=== PATIENT | male | born 1990 | race African-American/Black ===

== ENCOUNTER 2016-08-21 06:42 | Emergency (ER) | payer OTHER ==
[2016-08-21 07:00] VITALS: BMI 29.1
--- NOTE | 2016-08-21 07:27 | PDOC ---
[id number] No Limitations - History of Present Illness Timing/Duration: reports: intermittent Abdominal Pain Onset Location: reports: other (right testicular pain) Pain Radiation: reports: no radiation Activities at Onset: reports: other (heavy lifting) Alleviating Factors: improves with: None <Sedrick Larkin - Last Filed: 10/24/16 14:32> <Estefani Moreno - Last Filed: 10/25/16 09:07> - General Chief Complaint: Pain, Acute Stated Complaint: ABD AND TESTICULAR PAIN Time Seen by Provider: 08/21/16 07:11 Past History - Travel Traveled outside of the country in the last 30 days: No Close contact w/someone who was outside of country & ill: No - Immunization History Immunization Up to Date: Yes - Psycho/Social/Smoking Cessation Hx Anxiety: No Suicidal Ideation: No Smoking Status: No Smoking History: Never smoked Have you smoked in the past 12 months: No Number of Cigarettes Smoked Daily: 0 Hx Alcohol Use: No Drug/Substance Use Hx: No Substance Use Type: None <Sedrick Larkin - Last Filed: 10/24/16 14:32> <Estefani Moreno - Last Filed: 10/25/16 09:07> - Past Medical History Allergies/Adverse Reactions: Allergies Allergy/AdvReac Type Severity Reaction Status Date / Time No Known Allergies Allergy Verified 08/21/16 06:51 Home Medications: Ambulatory Orders No Home Medications 0 dose .ROUTE UTDICT 10/19/12 Abd/GI Specific PMHX - Complaint Specific PMHX Irritable Bowel Synd (IBS): No <Sedrick Larkin - Last Filed: 10/24/16 14:32> Review of Systems - Review of Systems Able to Perform ROS?: Yes Comments:: 08/21/16 07:25 CONSTITUTIONAL: Absent: fever, chills, diaphoresis, generalized weakness, malaise, loss of appetite HEENT: Absent: rhinorrhea, nasal congestion, throat pain, throat swelling, difficulty swallowing, mouth swelling, ear pain, eye pain, visual Changes CARDIOVASCULAR: Absent: chest pain, loss of consciousness, palpitations, irregular heart rate, peripheral edema RESPIRATORY: Absent: cough, shortness of breath, dyspnea with exertion, orthopnea, wheezing, stridor, hemoptysis GASTROINTESTINAL: Absent: abdominal pain, abdominal distension, nausea, vomiting, diarrhea, constipation, melena, hematochezia GENITOURINARY: +right testicular pain Absent: dysuria, frequency, urgency, hesitancy, hematuria, flank pain, genital pain MUSCULOSKELETAL: Absent: myalgia, arthralgia, joint swelling SKIN: Absent: rash, itching, pallor HEMATOLOGIC/IMMUNOLOGIC: Absent: easy bleeding, easy bruising, lymphadenopathy, frequent infections ENDOCRINE: Absent: unexplained weight gain, unexplained weight loss, heat intolerance, cold intolerance NEUROLOGIC: Absent: headache, focal weakness or paresthesias, dizziness, unsteady gait, seizure, mental status changes, bladder or bowel incontinence PSYCHIATRIC: Absent: anxiety, depression, suicidal or homicidal ideation, hallucinations. Is the patient limited Occitan proficient: No <Sedrick Larkin - Last Filed: 10/24/16 14:32> *Physical Exam - Vital Signs Last Vital Signs Temp Pulse Resp BP Pulse Ox 98.3 F 79 18 125/90 99 08/21/16 06:51 08/21/16 06:51 08/21/16 06:51 08/21/16 06:51 08/21/16 06:51 - Physical Exam Comments: 08/21/16 07:26 GENERAL: Well developed, well nourished. Awake and alert. No acute distress. HEENT: Normocephalic, atraumatic. PERRLA, EOMI. No conjunctival pallor. Sclera are non- icteric. Moist mucous membranes. Oropharynx is clear. NECK: Supple. Full ROM. No JVD. Carotid pulses 2+ and symmetric, without bruits. No thyromegaly. No lymphadenopathy. CARDIOVASCULAR: Regular rate and rhythm. No murmurs, rubs, or gallops. Distal pulses are 2+ and symmetric. PULMONARY: No evidence of respiratory distress. Lungs clear to auscultation bilaterally. No wheezing, rales or rhonchi. ABDOMINAL: +right testicular pain on palp; no inguinal hernia appreciated Soft. Non-tender. Non-distended. No rebound or guarding. No organomegaly. Normoactive bowel sounds. MUSCULOSKELETAL Normal range of motion at all joints. No bony deformities or tenderness. No CVA tenderness. EXTREMITIES: No cyanosis. No clubbing. No edema. No calf tenderness. SKIN: Warm and dry. Normal capillary refill. No rashes. No jaundice. NEUROLOGICAL: Alert, awake, appropriate. Cranial nerves 2-12 intact. No deficits to light touch and temperature in face, upper extremities and lower extremities. No motor deficits in the in face, upper extremities and lower extremities. Normoreflexic in the upper and lower extremities. Normal speech. Toes are down- going bilaterally. Gait is normal without ataxia. PSYCHIATRIC: Cooperative. Good eye contact. Appropriate mood and affect. <Sedrick Larkin - Last Filed: 10/24/16 14:32> - Vital Signs Last Vital Signs Temp Pulse Resp BP Pulse Ox 98.5 F 87 18 127/69 99 08/21/16 11:44 08/21/16 11:44 08/21/16 11:44 08/21/16 11:44 08/21/16 11:44 <Estefani Moreno - Last Filed: 10/25/16 09:07> ED Treatment Course - RADIOLOGY Radiology Studies Ordered: Category Date Time Status SCROTUM AND CONTENTS US [US] Stat Ultrasound 08/21/16 07:21 Ordered <Sedrick Larkin - Last Filed: 10/24/16 14:32> - Medications Given in the ED: ED Medications Discontinued Medications Generic Name Dose Route Start Last Admin Trade Name Freq PRN Reason Stop Dose Admin Ibuprofen 600 mg 08/21/16 11:17 08/21/16 11:43 Motrin - PO 08/21/16 11:18 600 mg ONCE ONE Administration <Estefani Moreno - Last Filed: 10/25/16 09:07> Progress Note - Progress Note Progress Note: 26-year-old male presents to the emergency department complaining of right testicular pain 4 days after heavy lifting while at work. Patient states he's been having right testicular 4/10 dull intermittent discomfort which radiates to the suprapubic area. The pain is exacerbated on touch. Alleviated at rest. Patient denies any chest pain, shortness of breath, flank pain, urinary symptoms : frequency/urgency/hesitancy, hematuria. <Sedrick Larkin - Last Filed: 10/24/16 14:32> *DC/Admit/Observation/Transfer <Sedrick Larkin - Last Filed: 10/24/16 14:32> - Attestations Physician Attestion: I reviewed the case with the mid-level practitioner and agree with the mid- level practitioner's assessment, diagnosis and disposition. <Estefani Moreno - Last Filed: 10/25/16 09:07> Diagnosis at time of Disposition: Epididymitis - Discharge Dispostion Disposition: HOME Condition at time of disposition: Good - Referrals Referrals: Telly Colbert MD [Staff Physician] - - Patient Instructions Printed Discharge Instructions: DI for Epididymitis Additional Instructions: I have sent your urine for gonorrhea and chlamydia and I recommend avoiding sex until you recieve the results. Follow up with referred urologist. I also recommend scrotal elevation, rest from athletic activity, warm baths, and NSAIDs such as Motrin 600mg every 8 hours
[2016-08-21 07:33] LABS: URINE APPEARANCE CLEAR; URINE BILIRUBIN NEGATIVE (NEGATIVE); URINE BLOOD NEGATIVE (NEGATIVE); URINE COLOR LTYELLOW; URINE GLUCOSE (UA) NEGATIVE (NEGATIVE); URINE KETONE NEGATIVE (NEGATIVE); URINE LEUK ESTERASE NEGATIVE (NEGATIVE); URINE NITRITE NEGATIVE (NEGATIVE); URINE PROTEIN NEGATIVE (NEGATIVE); URINE UROBILINOGEN NEGATIVE E.U./dl (0.2-1.0)
--- NOTE | 2016-08-21 08:34 | PDOC ---
*Physical Exam - Vital Signs Last Vital Signs Temp Pulse Resp BP Pulse Ox 98.3 F 79 18 125/90 99 08/21/16 06:51 08/21/16 06:51 08/21/16 06:51 08/21/16 06:51 08/21/16 06:51 ED Treatment Course - ADDITIONAL ORDERS Additional order review: Laboratory Results 08/21/16 07:06 Urine Color Ltyellow Urine Appearance Clear Urine pH 6.0 Ur Specific [place] 1.019 Urine Protein Negative Urine Glucose (UA) Negative Urine Ketones Negative Urine Blood Negative Urine Nitrite Negative Urine Bilirubin Negative Urine Urobilinogen Negative Ur Leukocyte Esterase Negative Medical Decision Making - Medical Decision Making 08/21/16 08:28 Laboratory Tests 08/21/16 07:06 Urine Ketones Negative Ur Leukocyte Esterase Negative Patient received in sign out from PATSY cartagena. Patient with complaints of right testicular pain. Patient had no palpable hernia on exam. Pt pending ultrasound. 08/21/16 10:14 Ultrasound shows slightly heterogeneous echotexture on the right testicle which is nonspecific that may be due to edema. There is also slightly prominent vascular flow in the right epididymis relative to the left. Rule out epididymitis. patient also small bilateral hydrocele. Patient will be tested for GC chlamydia and given urology follow-up. 08/21/16 10:17 Since patient had no complaints of dysuria and states pain was exacerbated after lifting a heavy item at work. Patient will wait for his results of his GC chlamydia and be sent home with supportive care. *DC/Admit/Observation/Transfer Diagnosis at time of Disposition: Epididymitis - Discharge Dispostion Disposition: HOME Condition at time of disposition: Good - Referrals Referrals: Telly Colbert MD [Staff Physician] - - Patient Instructions Printed Discharge Instructions: DI for Epididymitis Additional Instructions: I have sent your urine for gonorrhea and chlamydia and I recommend avoiding sex until you recieve the results. Follow up with referred urologist. I also recommend scrotal elevation, rest from athletic activity, warm baths, and NSAIDs such as Motrin 600mg every 8 hours
[2016-08-21] MEDS ORDERED: IBUPROFEN 600 MG TABLET (FP) PO ONE ×2 (11:17→11:39)
[2016-08-21 11:45] VITALS: BP 127/69; PULSE 87; TEMP 98.5
== END 2016-08-21 11:45 | disposition home or self-care (01) ==
LOC: JER 06:42
DX: N45.1 Epididymitis (principal); X50.0XXA Overexertion from strenuous movement or load, initial encounter; Y93.89 Activity, other specified; Y92.69 Other specified industrial and construction area as the place of occurrence of the external cause; Y99.0 Civilian activity done for income or pay
CPT/HCPCS: 76870-TC; 81003; 99282-25